=== PATIENT | female | born 1975 | race Caucasian/White ===

== ENCOUNTER → 2018-02-10 | Outpatient (CLI) | payer SELFPAY ==
--- NOTE | 2018-02-10 09:51 | RAD ---
DATE: 02/10/2018 EXAM: DIGITAL SCREEN BILAT W/CAD HISTORY: Routine screening COMPARISON: Baseline study This study was interpreted with the benefit of Computerized Aided Detection (CAD). The breast parenchyma is heterogeneously dense, which could reduce sensitivity of mammography. Breast parenchyma level C. FINDINGS: There is a cluster of tiny nodules in the posterolateral aspect of the right breast most compatible with intramammary lymph nodes. There are scattered microcalcifications in both breasts. The distribution suggests a benign etiology such as sclerosing adenosis. No suspicious microcalcifications are evident. IMPRESSION: Cluster of small nodules in the lateral right breast. Sonographic evaluation is suggested. BI-RADS CATEGORY: 0 INCOMPLETE: NEEDS ADDITIONAL IMAGING EVALUATION AND/OR PRIOR MAMMOGRAMS FOR COMPARISON. RECOMMENDED FOLLOW-UP: ADD ADDITIONAL IMAGING PQRS compliance statement: Patient information was entered into a reminder system with a target due date for the next mammogram. Mammography is a sensitive method for finding small breast cancers, but it does not detect them all and is not a substitute for careful clinical examination. A negative mammogram does not negate a clinically suspicious finding and should not result in delay in biopsying a clinically suspicious abnormality. "Our facility is accredited by the [employer] Mammography Program."
== END | disposition home or self-care (01) ==
LOC: MAMMO 08:49
PROVIDERS: ATTEND Family Medicine
DX: Z12.31 Encounter for screening mammogram for malignant neoplasm of breast (principal)
CPT/HCPCS: 77067

== ENCOUNTER → 2018-02-17 | Outpatient (CLI) | payer SELFPAY ==
--- NOTE | 2018-02-17 09:19 | RAD ---
Right breast ultrasound, 02/17/2018: History: Abnormal mammogram The screening mammograms demonstrated a small nodular cluster in the posterolateral aspect of the right breast. Today we scanned the lateral aspect of the right breast. At the 9:00 location approximately 7 cm from the nipple there is a 4 mm benign-appearing lymph node type density with an echogenic hilum. This probably corresponds to the area of mammographic concern. No other solid or cystic lesion is seen in this region. At the 12:00 location approximately 3 cm in the nipple there is a 7 mm cyst cluster or septated cyst. At the 11:30 location approximately 4 cm from the nipple there is a subtle 11 x 4 x 6 mm slightly hypoechoic nodule. It is wider than tall. There are mildly heterogeneous internal echoes. Its margins are smooth. This is probably a small fibrocystic lesion. At the 11:00 location approximately 4 cm of the nipple there is a 7 x 3 x 5 mm hypoechoic nodule is wider than tall. It demonstrates smooth margins. There is faint posterior acoustic enhancement. The appearance suggests a complicated cyst or small fibroadenoma. Also at the 11:00 location approximately 5 cm from the nipple there is an additional 6 x 3 x 4 mm nodule with similar sonographic characteristics. A slightly dilated retroareolar duct is noted at the 10:00 location. No highly suspicious breast nodule is seen. IMPRESSION: Numerous small breast abnormalities as delineated above, most likely benign. Sonographic surveillance beginning in 6 months with bilateral mammography at one year is suggested. BI-RADS 3-probably benign findings
== END | disposition home or self-care (01) ==
LOC: US 07:58
PROVIDERS: ATTEND Family Medicine
DX: R92.8 Other abnormal and inconclusive findings on diagnostic imaging of breast (principal)
CPT/HCPCS: 76641